=== PATIENT | male | born 1980 | race Two or more races ===

== ENCOUNTER 2019-11-26 14:48 | Inpatient (IN) | payer OTHER ==
[~2019-11-26] VITALS: Ht 172.7 cm; Wt 72.8 kg
[2019-11-26] MEDS ORDERED: ACETAMINOPHEN 325 MG TABLET PO PRN (15:30)
[2019-11-26] MEDS ORDERED: IBUPROFEN 600 MG TABLET PO PRN (15:45)
[2019-11-26] MEDS ORDERED: 0.9% SODIUM CHLORIDE 10 ML SYRINGE IVP PRN (15:45)
[2019-11-26] MEDS ORDERED: ONDANSETRON HCL 4 MG/2 ML VIAL IVP PRN (15:45)
[2019-11-26] MEDS ORDERED: HydrOXYzine PAMOATE 50 MG CAPSULE PO PRN (15:45)
[2019-11-26] MEDS ORDERED: MAG HYDROX/AL HYDROX/SIMETH ES 30 ML SUSPENSION UDCUP PO PRN (15:45)
[2019-11-26] MEDS ORDERED: CloNIDine HCL 0.1 MG TABLET PO PRN (15:45)
[2019-11-26 16:00] VITALS: BP 144/95
[2019-11-26 16:19] LABS: BASOPHILS % (AUTO) 0.8 % (0.0-2.0); EOSINOPHILS % (AUTO) 4.3 % (1.0-6.0); HEMATOCRIT 42.9 % (41-53); HEMOGLOBIN 14.3 g/dL (13.5-17.5); LYMPHOCYTES # (AUTO) 1.5 K/uL (1.0-4.8); LYMPHOCYTES % (AUTO) 22.8 % (22.0-44.0); MEAN CORPUSCULAR HEMOGLOBIN 31.8 pg (26.0-34.0); MEAN CORPUSCULAR HGB CONC 33.4 G/dL (31.0-37.0); MEAN CORPUSCULAR VOLUME 95 fL (80-100); MONOCYTES # (AUTO) 0.7 K/uL (0.1-1.0); MONOCYTES % (AUTO) 11.4 % (2.0-9.0); NEUTROPHILS # (AUTO) 3.9 K/uL (1.8-7.7); NEUTROPHILS % (AUTO) 60.7 % (40.0-70.0); PLATELET COUNT (AUTO) 300 K/uL (150-450); RED BLOOD CELL COUNT(AUTO) 4.51 MIL/uL (4.50-5.90); RED CELL DISTRIBUTION WIDTH 15.6 % (11.5-14.5)
[2019-11-26 16:24] LABS: ANION GAP 7 mmol/L (8-16); CALCIUM, TOTAL 9.5 mg/dL (8.8-10.5); CARBON DIOXIDE 29 mmol/L (22-29); CHLORIDE 106 mmol/L (98-107); CREATININE 0.78 mg/dL (0.60-1.30); GLOMERULAR FILTR. RATE CALC > 60 mL/min (>60); GLUCOSE,RANDOM 104 mg/dL (70-110); POTASSIUM 4.2 mmol/L (3.5-5.1); SODIUM SERUM 142 mmol/L (136-145); UREA NITROGEN, BLOOD 15 mg/dL (7-18)
[2019-11-26 16:30] LABS: ALANINE AMINOTRANSFERASE 21 U/L (12-78); ALBUMIN 4.2 g/dL (3.4-5.0); ALKALINE PHOSPHATASE 113 U/L (46-116); ASPARTATE AMINOTRANSFERASE 16 U/L (15-37); BILIRUBIN,TOTAL 1.3 mg/dL (0.1-1.0); TOTAL PROTEIN, SERUM 8.3 g/dL (6.4-8.2)
[2019-11-26] MEDS: CloNIDine HCL 0.1 MG TABLET PO SCH ×2 (17:32→22:07)
[2019-11-26] MEDS: FAMOTIDINE 10 MG/ML 2 ML VIAL IVP SCH (17:36)
[2019-11-26] MEDS: DOCUSATE SODIUM 100 MG CAPSULE PO SCH (21:26)
[2019-11-26 21:32] VITALS: BP 127/92
[2019-11-27 04:23] VITALS: BP 107/66
[2019-11-27] MEDS: CloNIDine HCL 0.1 MG TABLET PO SCH ×4 (06:00→22:00)
[2019-11-27 07:53] LABS: CALCIUM, TOTAL 9.2 mg/dL (8.8-10.5); CHLORIDE 105 mmol/L (98-107); CREATININE 0.81 mg/dL (0.60-1.30); GLOMERULAR FILTR. RATE CALC > 60 mL/min (>60); GLUCOSE,RANDOM 84 mg/dL (70-110); POTASSIUM 4.1 mmol/L (3.5-5.1); SODIUM SERUM 141 mmol/L (136-145); UREA NITROGEN, BLOOD 13 mg/dL (7-18)
[2019-11-27 07:57] VITALS: BP 125/66
[2019-11-27 08:04] LABS: BASOPHILS % (AUTO) 0.8 % (0.0-2.0); EOSINOPHILS % (AUTO) 6.6 % (1.0-6.0); HEMATOCRIT 42.8 % (41-53); LYMPHOCYTES % (AUTO) 31.3 % (22.0-44.0); MEAN CORPUSCULAR HEMOGLOBIN 31.1 pg (26.0-34.0); MEAN CORPUSCULAR HGB CONC 32.6 G/dL (31.0-37.0); MEAN CORPUSCULAR VOLUME 95 fL (80-100); MONOCYTES # (AUTO) 0.6 K/uL (0.1-1.0); MONOCYTES % (AUTO) 9.5 % (2.0-9.0); NEUTROPHILS # (AUTO) 3.3 K/uL (1.8-7.7); NEUTROPHILS % (AUTO) 51.8 % (40.0-70.0); PLATELET COUNT (AUTO) 288 K/uL (150-450); RED BLOOD CELL COUNT(AUTO) 4.49 MIL/uL (4.50-5.90); RED CELL DISTRIBUTION WIDTH 15.6 % (11.5-14.5)
[2019-11-27 08:31] LABS: ANION GAP 8 mmol/L (8-16); CARBON DIOXIDE 28 mmol/L (22-29)
[2019-11-27] MEDS: DOCUSATE SODIUM 100 MG CAPSULE PO SCH ×2 (09:48→20:45)
[2019-11-27] MEDS: FAMOTIDINE 10 MG/ML 2 ML VIAL IVP SCH (09:48)
[2019-11-27 11:10] VITALS: BP 130/67
[2019-11-27] MEDS ORDERED: METOCLOPRAMIDE HCL 5 MG/ML 2 ML VIAL IVP PRN (11:15)
[2019-11-27] MEDS ORDERED: DICYCLOMINE HCL 10 MG CAPSULE PO PRN (11:15)
[2019-11-27] MEDS ORDERED: LOPERAMIDE HCL 2 MG CAPSULE PO PRN (11:15)
[2019-11-27] MEDS ORDERED: LORazepam 2 MG/ML VIAL IVP PRN (11:15)
[2019-11-27] MEDS ORDERED: ACETAMINOPHEN/CODEINE 300-15 MG TABLET PO PRN (11:15)
[2019-11-27] MEDS ORDERED: ACETAMINOPHEN 325 MG TABLET PO PRN (15:15)
[2019-11-27 15:56] VITALS: BP 114/60
[2019-11-27 20:20] VITALS: BP 101/66
[2019-11-27] MEDS ORDERED: TEMAZEPAM 15 MG CAPSULE PO SCH (21:00)
[2019-11-28 00:15] VITALS: BP 104/64
[2019-11-28 04:50] VITALS: BP 100/68
[2019-11-28] MEDS: CloNIDine HCL 0.1 MG TABLET PO SCH ×2 (05:05→11:57)
[2019-11-28 07:01] LABS: BASOPHILS % (AUTO) 0.8 % (0.0-2.0); EOSINOPHILS % (AUTO) 6.6 % (1.0-6.0); HEMATOCRIT 40.3 % (41-53); HEMOGLOBIN 13.4 g/dL (13.5-17.5); LYMPHOCYTES % (AUTO) 29.9 % (22.0-44.0); MEAN CORPUSCULAR HEMOGLOBIN 31.5 pg (26.0-34.0); MEAN CORPUSCULAR HGB CONC 33.2 G/dL (31.0-37.0); MEAN CORPUSCULAR VOLUME 95 fL (80-100); MONOCYTES # (AUTO) 0.6 K/uL (0.1-1.0); MONOCYTES % (AUTO) 9.2 % (2.0-9.0); NEUTROPHILS # (AUTO) 3.7 K/uL (1.8-7.7); NEUTROPHILS % (AUTO) 53.5 % (40.0-70.0); PLATELET COUNT (AUTO) 251 K/uL (150-450); RED BLOOD CELL COUNT(AUTO) 4.25 MIL/uL (4.50-5.90); RED CELL DISTRIBUTION WIDTH 15.2 % (11.5-14.5)
[2019-11-28 07:41] LABS: ANION GAP 10 mmol/L (8-16); CALCIUM, TOTAL 8.6 mg/dL (8.8-10.5); CARBON DIOXIDE 26 mmol/L (22-29); CHLORIDE 104 mmol/L (98-107); CREATININE 0.83 mg/dL (0.60-1.30); GLOMERULAR FILTR. RATE CALC > 60 mL/min (>60); GLUCOSE,RANDOM 95 mg/dL (70-110); POTASSIUM 3.9 mmol/L (3.5-5.1); SODIUM SERUM 140 mmol/L (136-145); UREA NITROGEN, BLOOD 14 mg/dL (7-18)
[2019-11-28 08:07] VITALS: BP 102/64
[2019-11-28] MEDS: DOCUSATE SODIUM 100 MG CAPSULE PO SCH (08:31)
[2019-11-28] MEDS: FAMOTIDINE 10 MG/ML 2 ML VIAL IVP SCH (08:31)
[2019-11-28 11:27] VITALS: BP 106/55
[2019-11-28 15:16] VITALS: BP 100/64
== END 2019-11-28 15:50 | DRG 897 ==
LOC: EMS 14:50 → 6S 15:23 → 5N 15:49 → 5S 21:46 → 5N 11-27 01:30 → 6S 11-27 15:05
PROVIDERS: ADMIT Internal Medicine; ATTEND Internal Medicine
DX: F11.10 Opioid abuse, uncomplicated (principal); Z20.828 Contact with and (suspected) exposure to other viral communicable diseases; Z79.899 Other long term (current) drug therapy
CPT/HCPCS: 87635; 93005; J3490